=== PATIENT | male | born 1995 | race Caucasian/White ===

== ENCOUNTER 2019-09-24 16:21 | Emergency (ER) | payer OTHER, SELFPAY ==
--- NOTE | ~2019-09-24 | XR_ITS ---
XR shoulder RT min 2V DATE: 09/24/2019 17:03 INDICATION: Skateboarding injury yesterday. Right shoulder and scapular pain TECHNIQUE: 4 views COMPARISON: 01/27/2019 postoperative reduction right shoulder 01/26/2019 right shoulder FINDINGS: No fracture or dislocation is evident. Normal alignment at the glenohumeral joint. The righ t acromioclavicular joint appears stable compared to prior examinations. No abnormal soft tissue morro cification. IMPRESSION: No acute finding Reviewed, dictated and finalized at location A. IMPRESSION: No acute finding
[2019-09-24 16:37] VITALS: BP 121/62; PULSE 68; RESP 20; TEMP 36.8; O2SAT 99
--- NOTE | 2019-09-24 16:55 | ED.UPPEXIN ---
HPI - Extremity Injury (Upper) General Chief Complaint: Extremity Injury, Upper Stated Complaint: skateboard accident, rt shoulder injury Time Seen by Provider: 09/24/19 16:36 Source: patient Mode of arrival: ambulatory Limitations: no limitations History of Present Illness HPI narrative: This is a 24 year old male that presents to the ER for right shoulder injury sustained yesterday. Reports he fell backwards and caught himself with his right arm behind him. Peebles like his shoulder dislocated. Reports it then went back into place. Reports decreased range of motion due to pain. Arrives in the ED with a sling on the right arm for evaluation. Reports history of numerous dislocations of the shoulder in the past. Reports he is supposed to be getting surgery on the shoulder. Denies hitting his head, loss of consciousness, other injuries, or numbness. Related Data Allergies Allergy/AdvReac Type Severity Reaction Status Date / Time No Known Allergies Allergy Verified 09/24/19 16:51 Review of Systems Review of Systems: Narrative: CONSTITUTIONAL: Denies fever MUSCULOSKELETAL: Reports joint pain and myalgia. Denies back pain NEUROLOGIC: Denies numbness, or weakness. All systems reviewed & are unremarkable except as noted in HPI and below PMFSH Past Medical History Medical History (Updated 09/24/19 @ 17:36 by Trista Villanueva PA-C) Recurrent dislocation, right shoulder Seizure Substance abuse Surgical History Surgical History (Updated 01/26/19 @ 22:57 by Sabina Hooker MD) History of orthopedic surgery Social History Social History (Updated 01/26/19 @ 22:58 by Sabina Hooker MD) Tobacco type: e-cigarettes/vaping Alcohol intake: current Substance use type: marijuana, opiates and prescription drug Other substance usage details: Current history of marijuana and benzodiazepine use, past history of opioid Gender identity (if verbalized by the patient): Male Exam Narrative: Exam Narrative: GENERAL: Well-appearing, well-nourished, and in no acute distress. HEAD: Normocephalic, atraumatic. EYES: EOMI. CHEST: Clear to auscultation. No respiratory distress. No wheezes rales or rhonchi HEART: Regular rate and rhythm. No murmur heard. Normal peripheral pulses. EXTREMITIES: Normal range of motion, except decreased active ROM in the right shoulder due to pain. No edema or obvious deformity. Strength equal in bilateral upper extremities. Normal sensation SKIN: Warm, dry, no rash. NEURO: No focal deficits. Alert and oriented x3. PSYCH: Normal mood and affect Course Vital Signs Vital signs: Vital Signs Temperature 98.2 F 09/24/19 16:37 Pulse Rate 68 09/24/19 16:37 Respiratory Rate 20 09/24/19 16:37 Blood Pressure 121/62 09/24/19 16:37 Pulse Oximetry 99 09/24/19 16:37 Temperature 98.2 F 09/24/19 16:37 Pulse Rate 68 09/24/19 16:37 Respiratory Rate 09/24/19 16:37 Blood Pressure 121/62 09/24/19 16:37 Pulse Oximetry 99 09/24/19 16:37 MDM - Extremity Injury (Upper) MDM Narrative Medical decision making narrative: Patient presents the emergency department for right shoulder pain after an injury yesterday. Reports history of recurrent shoulder dislocation. Right shoulder x-rays without acute findings. Patient placed in sling. Instructed to follow-up with his orthopedic doctor. Patient is stable and felt appropriate for further outpatient evaluation. He was given warnings to return to the ER Imaging Data Radiologist's impression: ITS Impressions Shoulder X-Ray 09/24/19 17:03 IMPRESSION: No acute finding Critical Care Time Critical Care Time Critical Care Time: No Discharge Plan Discharge Clinical Impression: Acute pain of right shoulder Patient Disposition: Home, Self-Care Condition: Stable Instructions: Shoulder Dislocation (ED) Additional Instructions: Return to the emergency department if you experience fever, redness a
--- NOTE | 2019-09-24 17:45 | PC.NURSE ---
assisted patient to reapply shoulder immoblizer he wore into er
== END 2019-09-24 17:48 | disposition home or self-care (01) ==
PROVIDERS: Emergency Provider Emergency Medicine
DX: M25.511 Pain in right shoulder (principal)
CPT/HCPCS: 73030; 99283; A9270

== ENCOUNTER → 2020-01-23 12:59 | Outpatient (CLI) | payer OTHER, SELFPAY ==
--- NOTE | ~2020-01-23 | CT_ITS ---
EXAMINATION: CT wrist RT wo con DATE: 01/23/2020 13:49 INDICATION: Follow-up closed fracture of the right scaphoid. TECHNIQUE: High resolution computed tomography (CT) of the right wrist was performed without intraven ous contrast. Additional sagittal and coronal reconstructions were performed. Automated exposure cont rol and iterative reconstruction technique were employed. The dose-length product was 68.77 mGy-cm. COMPARISON: None FINDINGS: Nondisplaced fracture of the right scaphoid waist. There is minimal residual lucency along the palmar margin of the fracture and minimal sclerosis along the central to dorsal aspect of the fracture cons istent with moderately advanced healing. Normal trabecular pattern with no evident sclerosis at the p roximal pole to suggest avascular necrosis. Alignment remains essentially anatomic. No other fracture s identified. Joint spaces are normal. Small bone island at the distal capitate. Soft tissues are unr emarkable. Fiberglas casting material surrounds the visualized distal forearm, wrist and proximal love d. IMPRESSION: 1. Healing nondisplaced scaphoid waist fracture which remains in essentially anatomic alignment with no findings to suggest developing avascular necrosis. Reviewed, dictated and finalized at location A. [employer] IMPRESSION: 1. Healing nondisplaced scaphoid waist fracture which remains in essentially an atomic alignment with no findings to suggest developing avascular necrosis.
== END ==
DX: S62.001A Unspecified fracture of navicular [scaphoid] bone of right wrist, initial encounter for closed fracture (principal); X58.XXXA Exposure to other specified factors, initial encounter
CPT/HCPCS: 73200

== ENCOUNTER 2020-09-15 16:48 | Emergency (ER) | payer OTHER, SELFPAY ==
[2020-09-15 17:05] VITALS: BP 115/64; PULSE 68; RESP 18; TEMP 36.7; O2SAT 97
--- NOTE | 2020-09-15 17:06 | ED.GENADULT ---
HPI - General Adult General Chief complaint: Upper Respiratory Infection Stated complaint: upper respiratory infection Time Seen by Provider: 09/15/20 17:07 Source: patient, family (Cliff requests mother be in room and okay for her to hear about his care) and RN notes reviewed Mode of arrival: ambulatory Limitations: no limitations History of Present Illness HPI narrative: 25-year-old male presents with complaints of upper respiratory infection symptoms, vomiting, cold sweats, and intermittent headaches (not the worst of his life) for the past 2-3 days. ?Cliff reports possible exposure to COVID-19 and continuous URI symptoms throughout the night and day. ?Mother is requesting a Rapid COVID-19 only at this time and refuses a PCR. ?Rgec-iiq-adugxau cold medication, Advil last approximately 6 hours ago and Tylenol last approximately 2 hours ago without relief. ?No cough or chest congestion. ?No rhinorrhea and nasal congestion. ?No sore throat. ?No high fevers, chills, or sweats. ?Vomit once 2 days ago without nausea and abdominal pain. ?Denies chest pain, facial pain, foreign body sensation, and rash. ?The patient reports he has not been diagnosed with COVID-19. ?The patient reports he is not waiting for the results of a COVID-19 lab test. ?The patient reports he does not have weakness, myalgia, or fatigue. ?The patient reports he does not have a worsening cough. ?The patient reports he does not have any loss of smell or taste or diarrhea. ?Denies recent traveling. ?Denies concerns for COVID-19 or exposures. ?At this time, the patient is not suspected of having COVID-19. Some parts of this dictation were generated by voice recognition software and may contain typographical and/or grammatical inaccuracies. Related Data Home Medications Medication Instructions Recorded Confirmed clonazepam 2 mg PO DAILY 09/15/20 09/15/20 trazodone 50 mg PO PRN PRN 09/15/20 09/15/20 Allergies Allergy/AdvReac Type Severity Reaction Status Date / Time No Known Allergies Allergy Verified 09/15/20 17:00 Review of Systems Review of Systems: CONSTITUTIONAL: Denies fever, chills. Complaints of cold sweats. EYES: Denies visual changes, redness, discharge. ENT: Denies otalgia, rhinorrhea, congestion, sore throat. CARDIOVASCULAR: Denies chest pain, palpitations, edema. RESPIRATORY: Denies wheezing, dyspnea, cough. GASTROINTESTINAL: Denies abdominal pain, nausea, diarrhea. Complaints of vomiting. SKIN: Denies rash or itching. MUSCULOSKELETAL: Denies acute back pain, joint pain, myalgia. NEUROLOGIC: Denies numbness or focal weakness. Complaints of LYON. PSYCHIATRIC: Denies anxiety or depression. All systems reviewed & are unremarkable except as noted in HPI and below. [facility] Past Medical History Medical History (Updated 09/16/20 @ 00:01 by Benita Ziegler) Anxiety Recurrent dislocation, right shoulder Seizure Substance abuse Surgical History Surgical History History of orthopedic surgery Family History Family History (Updated 09/15/20 @ 17:22 by KARL Melara) Father Alive and well Mother Alive and well Social History Social History (Updated 09/15/20 @ 17:23 by KARL Melara) Smoking status: Never smoker Tobacco type: cigarettes Second hand tobacco smoke exposure: No Alcohol intake: current Alcohol use details: Occasional Substance use type: marijuana, opiates and prescription drug Other substance usage details: Current history of marijuana and benzodiazepine use, past history of opioid Living arrangements: with family Occupation/Education: student Gender identity (if verbalized by the patient): Male Comments At time of signature, agree with the nurse past medical, surgical, social, and family history. There is no relevant family history pertinent to the presenting complaint. Exam Narrative: GENERAL: This is a well-nourished, we
== END 2020-09-15 17:56 | disposition home or self-care (01) ==
PROVIDERS: Emergency Provider Nurse Practitioner Family
DX: J06.9 Acute upper respiratory infection, unspecified (principal); Z20.822 Contact with and (suspected) exposure to COVID-19; F41.9 Anxiety disorder, unspecified
CPT/HCPCS: 87426; 99213; C9803; G0463

== ENCOUNTER 2021-12-14 11:36 | Emergency (ER) | payer OTHER, SELFPAY ==
[2021-12-14 11:49] VITALS: BP 122/67; PULSE 95; RESP 14; TEMP 36.4; O2SAT 95
--- NOTE | 2021-12-14 12:39 | PC.NURSE ---
PT TO DESK STATING HE WANTS TO GO HOME AND TRY TO KEEP WATER DOWN. PT A&OX4 AND NO APPARENT DISTRESS. PT ENCOURAGED TO RETURN IF SYMPTOMS GET WORSE.
== END 2021-12-15 02:24 | disposition left against medical advice (07) ==
DX: R11.2 Nausea with vomiting, unspecified (principal)
CPT/HCPCS: 99199

== ENCOUNTER 2023-06-28 10:50 | Emergency (ER) | payer OTHER, SELFPAY ==
--- NOTE | ~2023-06-28 | CT_ITS ---
EXAMINATION: CT abdomen pelvis wo con DATE: 06/28/2023 11:13 INDICATION: Hematuria TECHNIQUE: Computed tomography (CT) of the abdomen and pelvis was performed without intravenous contr ast. Automated exposure control and iterative reconstruction technique were employed. The dose-length product was 197.71 mGy-cm. COMPARISON: None FINDINGS: Lung bases are clear. Heart size is normal. No pericardial or pleural effusion. Liver, gallbladder, s pleen, pancreas, bilateral adrenal glands are normal. Kidneys and ureters are normal with no urolithi asis, hydroureteronephrosis or perinephric/ureteral stranding. There are few phleboliths in the pelvi s. Normal bladder. Bowels are normal with no wall thickening or obstruction. Calcified appendicoliths within the normal-appearing appendix with no periappendiceal inflammatory stranding to suggest acute appendicitis. No free intraperitoneal gas or fluid. No pathologically enlarged abdominal or pelvic l ymphadenopathy. Transitional sacralized L5 segment. Bones are otherwise unremarkable. IMPRESSION: 1. No urolithiasis or other acute intrapelvic abdominal/pelvic process. Reviewed, dictated and finalized at location A.
--- NOTE | 2023-06-28 11:00 | ED.MALEGU ---
HPI - Male Genitourinary General Chief complaint: Urogenital-Male Stated complaint: hematuria Time Seen by Provider: 06/28/23 10:52 History of Present Illness HPI Narrative: 27-year-old male history of anxiety depression presents to the emergency room for evaluation of painless hematuria. States he has had 1 episode of hematuria this morning. Denies any abdominal pain back pain. Denies any fevers. Denies any recent URI. Denies concerns or STIs. Denies rash Related Data Home Medications Medication Instructions Recorded Confirmed clonazepam 2 mg tablet 2 mg PO DAILY 09/15/20 09/15/20 trazodone 50 mg tablet 50 mg PO PRN PRN Insomnia 09/15/20 09/15/20 Allergies Allergy/AdvReac Type Severity Reaction Status Date / Time codeine Allergy Hives Verified 06/28/23 11:14 morphine Allergy Hives Verified 06/28/23 10:50 Review of Systems Review of Systems: ROS unremarkable except for noted in HPI PMFSH Past Medical History Medical History Anxiety Recurrent dislocation, right shoulder Seizure Substance abuse Surgical History Surgical History History of orthopedic surgery Family History Family History Father Alive and well Mother Alive and well Social History Social History Smoking status: Never smoker Tobacco type: cigarettes Second hand tobacco smoke exposure: No Alcohol intake: current Alcohol use details: Occasional Substance use type: marijuana, opiates and prescription drug Other substance usage details: Current history of marijuana and benzodiazepine use, past history of opioid Living arrangements: with family Occupation/Education: student Gender identity (if verbalized by the patient): Male Exam Narrative: GENERAL: Well-appearing, well-nourished, no physical limitations, and in no acute distress. HEAD: Normocephalic, atraumatic. EYES: Conjunctivae normal, PERRLA and EOMI. CHEST: Clear to auscultation. No respiratory distress. No wheezes rales or rhonchi. HEART: Regular rate and rhythm. No murmur heard. Normal peripheral pulses. ABDOMEN: Soft, nontender, nondistended, normal active bowel sounds. BACK: No CVA tenderness EXTREMITIES: Normal range of motion. No edema. No clubbing or cyanosis SKIN: Warm, dry, no rash. No noted wounds NEURO: No focal deficits. Alert and oriented x3. MAEW. CN's II-XI intact bilaterally, normal gait PSYCH: Cooperative. Normal mood and affect. Course Vital Signs Vital signs: Vital Signs Temperature 36.6 C 06/28/23 11:04 Pulse Rate 98 06/28/23 11:04 Respiratory Rate 16 06/28/23 11:04 Blood Pressure 132/90 06/28/23 11:04 Pulse Oximetry 100 06/28/23 11:04 Temperature 36.6 C 06/28/23 11:04 Pulse Rate 98 06/28/23 11:04 Respiratory Rate 16 06/28/23 11:04 Blood Pressure 132/90 06/28/23 11:04 Pulse Oximetry 100 06/28/23 11:04 MDM - Male Genitourinary Lab Data 06/28/23 11:09 06/28/23 11:09 Labs: Lab Results 06/28/23 06/28/23 Range/Units 11:09 11:18 WBC 8.8 (4.5-10.0) K/mm3 RBC 4.82 (4.6-6.20) M/mm3 Hgb 14.3 (14.0-18.0) g/dL Hct 43.7 (42.0-52.0) % MCV 90.7 (80-100) fl MCH 29.7 (26-34) pg MCHC 32.7 (32-36) g/dl RDW 13.9 (11.5-14.5) % Plt Count 288 (150-375) k/mm3 MPV 10.1 (7.4-10.4) fl Immature Gran % (Auto) 0.5 (0-0.5) % Neut % (Auto) 58.2 (45.5-73.1) % Lymph % (Auto) 29.9 (18.3-44.2) % [place] % (Auto) 9.2 H (2.6-8.5) % Eos % (Auto) 1.9 (0-4.4) % Baso % (Auto) 0.3 (0.2-1.2) % Lymph # (Auto) 2.64 (0.9-3.2) K/mm3 [place] # (Auto) 0.8 H (0.1-0.6) K/mm3 Eos # (Auto) 0.2 (0-0.3) K/mm3 Baso # (Auto) 0.0 (0.0-0.1) K/mm3 Abs Immat Gran (auto) 0.04 H (0.00-0.031) K
[2023-06-28 11:04] VITALS: BP 132/90; PULSE 98; RESP 16; TEMP 36.6; O2SAT 100
[2023-06-28 11:39] LABS: Basophils Percent Auto 0.3 % (0.2-1.2); Eosinophils Absolute Auto 0.2 K/mm3 (0-0.3); Eosinophils Percent Auto 1.9 % (0-4.4); Hematocrit 43.7 % (42.0-52.0); Hemoglobin 14.3 g/dL (14.0-18.0); Immature Granulocyte Absolute 0.04 K/mm3 (0.00-0.031); Immature Granulocyte Percent A 0.5 % (0-0.5); Lymphocytes Absolute Auto 2.64 K/mm3 (0.9-3.2); Lymphocytes Percent Auto 29.9 % (18.3-44.2); Mean Corpuscular HGB Conc 32.7 g/dl (32-36); Mean Corpuscular Hemoglobin 29.7 pg (26-34); Mean Corpuscular Volume 90.7 fl (80-100); Mean Platelet Volume 10.1 fl (7.4-10.4); Monocytes Absolute Auto 0.8 K/mm3 (0.1-0.6); Monocytes Percent Auto 9.2 % (2.6-8.5); Neutrophils Absolute Auto 5.2 K/mm3 (1.3-6.7); Neutrophils Percent Auto 58.2 % (45.5-73.1); Platelet Count Result 288 k/mm3 (150-375); Red Blood Count 4.82 M/mm3 (4.6-6.20); Red Cell Distribution Width 13.9 % (11.5-14.5); White Blood Count 8.8 K/mm3 (4.5-10.0)
[2023-06-28 11:47] LABS: Bacteria Urine None Seen /hpf; Non Pathogenic Casts 0-2; RBC Urine >100 /hpf (0-2); Squamous Epithelial Cell Urine None Seen /hpf (Few)
[2023-06-28 11:50] LABS: Appearance Urine Turbid (Clear); Bilirubin Urine 1+ (Negative); Blood Urine 3+ (Negative); Color Urine Red (Yellow); Glucose Urine UA Negative (Negative); Ketones Urine Negative (Negative); Leukocyte Esterase Ur 1+ LEU/UL (Negative); Nitrate Urine Negative (Negative); Protein Urine 1+ mg/dL (Negative); Specific Grav Ur 1.019 (1.001-1.035); Urobilinogen Urine 0.2 mg/dL (<2.0)
[2023-06-28 11:52] LABS: Add Urine Microscopic? YES
[2023-06-28 11:57] LABS: Alanine Aminotransferase 33 U/L (6-50); Albumin Level 4.8 g/dL (3.5-5.1); Alkaline Phosphatase 106 U/L (38-126); Anion Gap 9 mmol/L (4-12); Aspartate Amino Transferase 47 U/L (17-59); Bilirubin,Total 0.5 mg/dL (0.2-1.3); Blood Urea Nitrogen 30 mg/dL (9-20); Calcium 9.6 mg/dL (8.4-10.2); Carbon Dioxide 24 mmol/L (22-30); Chloride 106 mmol/L (98-107); Estimated Glomerular Filt Rate > 60; Glucose 97 mg/dL (65-110); Potassium 3.5 mmol/L (3.4-5.0); Sodium 139 mmol/L (137-145)
[2023-06-28 12:33] VITALS: BP 128/87; PULSE 90; RESP 17; O2SAT 100
[2023-06-28 14:13] LABS: Chlamydia trachomatis NOT DETECTED (NOT DETECTE); Neisseria gonorrhoeae PCR NOT DETECTED (NOT DETECTE)
== END 2023-06-28 12:34 | disposition home or self-care (01) ==
PROVIDERS: Emergency Provider Nurse Practitioner Family
DX: R31.9 Hematuria, unspecified (principal); F41.9 Anxiety disorder, unspecified
CPT/HCPCS: 36415; 74176; 80053; 81001; 85025; 87086; 87491; 87591; 99284

== ENCOUNTER 2023-12-26 15:00 | Emergency (ER) | payer OTHER, SELFPAY ==
--- NOTE | ~2023-12-26 | XR_ITS ---
XR ankle LT min 3V Ordering provider: Trista Villanueva PA-C History: . left ankle pain, injury . Comparison: None. FINDINGS: BONES: Fracture of the lateral malleolus.. Cystic changes in the calcaneus is noted. CT evaluation advised. JOINT SPACES: The ankle mortise is normal. SOFT TISSUES: Soft tissue swelling over the lateral malleolus. IMPRESSION: Fracture of the lateral malleolus with minimal displacement posteriorly. Cystic changes in the calcaneus. Further evaluation advised. Reviewed, dictated and finalized at location [facility]. [facility]
[2023-12-26 15:10] VITALS: BP 96/82; PULSE 84; RESP 18; TEMP 36.2; O2SAT 98
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
[2023-12-26] MEDS: HYDROcodone/acetaminophen (*CRX) 5-325 MG TABLET 1 TAB PO ×2 (15:17→17:29)
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
[2023-12-26 17:54] VITALS: BP 130/80; PULSE 99; RESP 18; O2SAT 100
== END 2023-12-26 18:16 | disposition home or self-care (01) ==
PROVIDERS: Emergency Provider Physician Assistant
DX: S82.62XA Displaced fracture of lateral malleolus of left fibula, initial encounter for closed fracture (principal); F41.9 Anxiety disorder, unspecified; V86.56XA Driver of dirt bike or motor/cross bike injured in nontraffic accident, initial encounter
CPT/HCPCS: 29515; 73610; 99284; A9270; J1885